=== PATIENT | male | born 1995 | race Caucasian/White ===

== ENCOUNTER 2020-12-13 13:39 | Emergency (ER) | payer OTHER, SELFPAY ==
--- NOTE | 2020-12-13 13:49 | ED_ITS ---
HPI - Extremity Injury (Upper) General Chief Complaint: Extremity Injury, Upper Stated Complaint: NAIL IN ARM Time Seen by Provider: 12/13/20 13:44 History of Present Illness HPI narrative: 25-year-old male nonsmoker, fully immunized presents from outside facility due to a nail penetrating his right forearm. He was working on a roof and stumbled in accidentally ran a nail into his arm. He has pain in very minimal bleeding but denies any numbness, tingling or weakness. He presented initially to an outside facility and had x-ray demonstrating no bony involvement. Patient was sent here for definitive treatment. He is otherwise well and free of complaint. Tetanus was updated today, nail was brand new and free of dirt or rust Related Data Previous Rx's Medication Instructions Recorded cephalexin 500 mg capsule 500 mg PO Q6H 7 Days #28 cap 12/13/20 Allergies Allergy/AdvReac Type Severity Reaction Status Date / Time No Known Drug Allergies Allergy Verified 12/13/20 13:50 Review of Systems Review of Systems Narrative: GENERAL: Denies chills, fatigue, malaise, fever, sweats. HEENT: Denies sinus pain, ear pain, sore throat, difficulty swallowing, dizziness. RESPIRATORY: Denies dyspnea, cough, wheezing, hemoptysis, sputum. CARDIOVASCULAR: Denies chest pain, palpitations, orthopnea, edema, GASTROINTESTINAL: Denies nausea, vomiting, abdominal pain, diarrhea, constipation, melena. : Denies dysuria, frequency, incontinence, hematuria, urinary retention. MUSCULOSKELETAL: See HPI SKIN: Denies rash, skin lesions, or other NEUROLOGIC: Denies weakness, headache, numbness, change in speech, confusion, seizures, incoordination. PSYCHIATRIC: No concerning psychosocial issues. 12 point review of systems is negative except for those stated above Patient History Social History Smoking Status: Former smoker Exam Narrative Exam Narrative: GEN: AOx3 and in mild distress EYES: Pupils are equal, round, and reactive to light and accommodation. Extraoccular muscles are intact bilaterally. There is no subconjunctival hemorrhage or exudate. CHEST: Lungs are clear to auscultation bilaterally and free of wheezes, rales, or rhonchi. Heart rate is regular rhythm, there are no murmurs, clicks, rubs, or gallops. There is no chest wall tenderness. ABD: Abdomen is soft and nontender. There is no guarding or rebound. Bowel sounds are normal in all 4 quadrants. There is no mass or organomegaly. EXT: Large rachel nail noted in soft tissue of right forearm, no active bleeding, no weakness, numbness or tingling, compartments are soft Full painless ROM of all extremities with no loss of sensation or strength. SKIN: Warm, pink, and dry. No erythema or rash Initial Vital Signs Initial Vital Signs: Vital Signs Temperature 98.6 F 12/13/20 13:50 Pulse Rate 80 12/13/20 13:50 Respiratory Rate 14 12/13/20 13:50 Blood Pressure 160/97 H 12/13/20 13:50 Pulse Oximetry 100 12/13/20 13:50 Procedures Foreign Body OTHER Time Out Performed: yes Foreign Body Removal Site: right and upper extremity Description of foreign body: other Technique: manual removal (With pliers) Confirmed by:: direct visualization Complications: none Neurovascular: normal distal pulse Course Orders Ordered: Discontinued Medications Bupivacaine HCl (Bupivacaine 0.5% (Pf) Vial) 5 ml SUBCUT NOW ONE Stop: 12/13/20 13:51 Consultations Consultation #1: Outside x-ray reviewed with orthopedics on-call and we sure the opinion this is likely to be very easily and appropriately removed at the bedside. MDM - Extremity Injury (Upper) MDM Narrative Medical decision making narrative: 4 cc of lidocaine with bicarb injected along shaft of the nail which is very easily removed without complication. Patient given extensive return precautions regarding infection and elements of compartment syndrome and patient verbalized his understanding. Questions answered to his apparent satisfaction Discharge Plan Departure Patient Disposition: Home Clinical Impression: Puncture wound of forearm Qualifiers: Encounter type: initial encounter Laterality: right Qualified Code(s): S51.831A - Puncture wound without foreign body of right forearm, initial encounter Instructions: DI for Puncture Wound Activity Restrictions/Additional Instructions: *You have been diagnosed with [foreign body right forearm, moved. Her tetanus has been updated antibiotics sent to the pharmacy.] *What to do: *Please continue to take your regular medications as directed. [x ] New medication prescriptions sent to your pharmacy: [ [facility]] [ ] New medication written as a paper prescription [ ] No new medications given *Please follow up with your primary care provider in 2-3 days, call for an appointment. Let them know you were seen in the Emergency Department and that we ask that you be seen in follow up. We will electronically transmit a record of today's note if your PCP is in our system * of also given you contact information for on-call orthopedist Dr. Hernandez. Follow up will be important to ensure no deep space infection develops. *Return to Emergency Department if you should have any new, worsening or concerning symptoms, such as [fever greater than 101 F, shaking chills, worsening pain, persistent vomiting or other bothersome symptoms] Prescriptions: New cephalexin 500 mg capsule 500 mg PO Q6H 7 Days Qty: 28 RF: 0 Referrals: Lauren Hernandez MD [Physician] - Elsie Ramsey PA-C [Primary Care Provider] -
[2020-12-13 13:50] VITALS: BP 160/97; PULSE 80; RESP 14; TEMP 37; O2SAT 100; BMI 27.8
== END 2020-12-13 14:28 | disposition home or self-care (01) ==
PROVIDERS: Emergency Provider Emergency Medicine; PCP Physician Assistant
DX: S51.831A Puncture wound without foreign body of right forearm, initial encounter (principal); W45.0XXA Nail entering through skin, initial encounter; Y99.0 Civilian activity done for income or pay
CPT/HCPCS: 99281